=== PATIENT | female | born 1975 | race Two or more races ===

== ENCOUNTER 2023-01-31 05:30 | Day surgery (SDC) | payer OTHER ==
[~2023-01-31 05:30] MED LIST: SYNTHROID88 MCG PO
== END 2023-01-31 12:00 | disposition home or self-care (01) ==
LOC: CIR.AMB 05:30
PROVIDERS: ATTEND Colon & Rectal Surgery
DX: C7A.8 Other malignant neuroendocrine tumors (principal); D37.3 Neoplasm of uncertain behavior of appendix; K63.5 Polyp of colon; K59.00 Constipation, unspecified; K62.5 Hemorrhage of anus and rectum; R50.9 Fever, unspecified; E03.9 Hypothyroidism, unspecified

== ENCOUNTER 2023-03-07 12:00 | Inpatient (IN) | payer OTHER ==
[~2023-03-07] VITALS: Ht 167.6 cm; Wt 101.2 kg
[2023-03-11 13:20] LABS: HEMATOCRIT 35.2 % (36.0-45.00); HEMOGLOBIN 12.1 g/dL (12.0-15.00); MEAN CORPUSCULAR HEMOGLOBIN 31.6 pg (27.00-32.0); MEAN CORPUSCULAR HGB CONC 34.4 g/dl (32.0-36.0); PLATELET COUNT 155 K/uL (150-450); RED BLOOD COUNT 3.83 M/uL (4.00-6.00); RED CELL DISTRIBUTION WIDTH 13.2 % (11.5-14.5)
[2023-03-11 13:45] LABS: ALBUMIN 3.4 gm/dL (3.4-5.0); CALCIUM 8.7 mg/dL (8.5-10.1); CREATININE SERUM 0.76 mg/dL (0.55-1.02); GFR 81.22; MAGNESIUM 2.1 mg/dL (1.8-2.4); PHOSPHOROUS 3.4 mg/dL (2.5-4.9); POTASSIUM 3.62 mEq/L (3.5-5.1)
[2023-03-13 07:49] LABS: ALBUMIN 2.8 gm/dL (3.4-5.0); CALCIUM 8.2 mg/dL (8.5-10.1); CREATININE SERUM 0.58 mg/dL (0.55-1.02); GFR 110.96; HEMATOCRIT 32.4 % (36.0-45.00); HEMOGLOBIN 11.4 g/dL (12.0-15.00); MAGNESIUM 2.1 mg/dL (1.8-2.4); MEAN CELL VOLUME 90.9 fL (80.00-100.00); MEAN CORPUSCULAR HEMOGLOBIN 31.9 pg (27.00-32.0); MEAN CORPUSCULAR HGB CONC 35.1 g/dl (32.0-36.0); PHOSPHOROUS 3.5 mg/dL (2.5-4.9); PLATELET COUNT 161 K/uL (150-450); POTASSIUM 3.37 mEq/L (3.5-5.1); RED BLOOD COUNT 3.56 M/uL (4.00-6.00); RED CELL DISTRIBUTION WIDTH 13.3 % (11.5-14.5)
[2023-03-14 06:48] LABS: HEMATOCRIT 31.7 % (36.0-45.00); HEMOGLOBIN 11.1 g/dL (12.0-15.00); MEAN CELL VOLUME 92.2 fL (80.00-100.00); MEAN CORPUSCULAR HEMOGLOBIN 32.4 pg (27.00-32.0); MEAN CORPUSCULAR HGB CONC 35.1 g/dl (32.0-36.0); PLATELET COUNT 167 K/uL (150-450); RED BLOOD COUNT 3.43 M/uL (4.00-6.00); RED CELL DISTRIBUTION WIDTH 12.9 % (11.5-14.5)
[2023-03-14 07:16] LABS: ALBUMIN 2.8 gm/dL (3.4-5.0); CALCIUM 8.2 mg/dL (8.5-10.1); CREATININE SERUM 0.54 mg/dL (0.55-1.02); GFR 120.5; MAGNESIUM 2.1 mg/dL (1.8-2.4); PHOSPHOROUS 3.5 mg/dL (2.5-4.9); POTASSIUM 3.32 mEq/L (3.5-5.1)
[2023-03-16 06:55] LABS: HEMATOCRIT 33.5 % (36.0-45.00); HEMOGLOBIN 11.6 g/dL (12.0-15.00); MEAN CELL VOLUME 91.1 fL (80.00-100.00); MEAN CORPUSCULAR HEMOGLOBIN 31.4 pg (27.00-32.0); MEAN CORPUSCULAR HGB CONC 34.5 g/dl (32.0-36.0); PLATELET COUNT 220 K/uL (150-450); RED BLOOD COUNT 3.68 M/uL (4.00-6.00); RED CELL DISTRIBUTION WIDTH 12.9 % (11.5-14.5)
[2023-03-16 06:57] LABS: ALBUMIN 2.7 gm/dL (3.4-5.0); CALCIUM 8.2 mg/dL (8.5-10.1); CREATININE SERUM 0.6 mg/dL (0.55-1.02); GFR 106.25; PHOSPHOROUS 3.5 mg/dL (2.5-4.9); POTASSIUM 3.79 mEq/L (3.5-5.1)
== END 2023-03-16 10:32 | disposition home or self-care (01) | DRG 827 ==
LOC: SURH 03-11 05:12 → O/R 03-11 05:12 → SURH 03-11 07:00
PROVIDERS: ADMIT Colon & Rectal Surgery; ATTEND Colon & Rectal Surgery
PROC: 07BB4ZZ Excision of Mesenteric Lymphatic, Percutaneous Endoscopic Approach (ICD-10-PCS; 2023-03-11)
PROC: 0WQF4ZZ Repair Abdominal Wall, Percutaneous Endoscopic Approach (ICD-10-PCS; 2023-03-11)
PROC: 0DTF4ZZ Resection of Right Large Intestine, Percutaneous Endoscopic Approach (ICD-10-PCS; principal; 2023-03-11 07:00)
DX: D3A.8 Other benign neuroendocrine tumors (principal); K91.89 Other postprocedural complications and disorders of digestive system; L03.311 Cellulitis of abdominal wall; K43.9 Ventral hernia without obstruction or gangrene; R59.0 Localized enlarged lymph nodes; E03.9 Hypothyroidism, unspecified